=== PATIENT | male | born 1980 | race Caucasian/White ===

== ENCOUNTER 2023-12-03 16:03 | Inpatient (IN) | payer OTHER, SELFPAY ==
[2023-12-03 16:04] VITALS: BP 144/98; PULSE 81; RESP 15; TEMP 36.1; O2SAT 96; BMI 32.8
--- NOTE | 2023-12-03 16:12 | EDS_ITS ---
HPI History of Present Illness Chief Complaint: Abd Pain [facility] Medical History (Updated 12/03/23 @ 22:[address] Amari Soto MD) Gallstone Home Medications ?Medication ?Instructions ?Recorded ?Last Taken ?Type NK 12/03/23 Unknown History Allergy/AdvReac Type Severity Reaction Status Date / Time No Known Allergies Allergy Verified 12/03/23 16:03 Social History Smoking Status: Never smoker EXAM Physical Exam Const Vital Signs: 12/03/23 16:04 12/03/23 20:00 12/03/23 21:59 Temperature 97 F L 98.6 F Temperature Source Temporal Pulse Rate 81 62 65 Respiratory Rate 15 16 18 Blood Pressure 144/98 H 148/93 H 141/97 H Blood Pressure Mean 113 111 111 Pulse Ox 96 99 96 Oxygen Delivery Method Room Air Room Air MDM MDM MDM Narrative Medical decision making narrative: HISTORY OF PRESENT ILLNESS: 43-year-old male presents abdominal pain. Notes he was recently seen in outside hospital and told he had gallstones. Notes pain is worse today and also endorses associated nausea and vomiting. States he has had 2 weeks of abdominal pain is worse after food. Notes he was recently evaluated in outside hospital where he was found have gallstones. Noted this morning he ate breakfast he had severe pain after eating that is since resolved. Notes he tried fireball whiskey because he thought this would help however this made it much worse. He notes several episodes of nonbloody nonbilious vomitus. Denies history abdominal surgeries. Last bowel movement was today. There is no melena or hematochezia noted. He does not drink alcohol other than his 1 drink today. He does endorse chest tightness as well. Denies shortness of breath. Denies leg swelling. The patient denies recent surgery in the last 4 weeks or immobilization in the last 3 days, denies previous diagnosis of DVT or PE, hemoptysis, unilateral leg swelling or malignancy with treatment the last 6 months or palliative. No estrogen use noted. Patient denies sudden onset of pain, no tearing sensation, no migratory symptoms, no new numbness, weakness or loss of sensation. Patient denies family history or personal history of Connective tissue disorders (Marfan's Syndrome, Olesya Danlos etc) REVIEW OF SYSTEMS: Pertinent positives: Abdominal pain, nausea vomiting Pertinent negatives: Syncope, vomiting, focal weakness, leg swelling PHYSICAL EXAM: Nursing triage notes reviewed, Vital signs reviewed Constitutional: please see mdm HENT: MMM Eyes: Pupils equal round and reactive to light, Extraocular muscles intact Neck: No stridor, no JVD, full neck ROM Lungs: Clear to auscultation, No wheezing or rales. No increased work of breathing, no conversational dyspnea, no accessory muscle use, no nasal flaring. No respiratory distress noted Heart: Regular rate and rhythm, No murmurs, No rubs and No gallops, 2+ distal pulses (radial, femoral, posterior tibial) in all extremities Abdomen: Soft, there is no tenderness, rigidity, rebound or guarding, no obvious peritoneal signs, no palpable pulsatile abdominal masses, no auscultated abdominal bruit : No CVAT Extremities: No edema Neuro: No focal neurological deficits, cranial nerves II through XII intact, 5/5 strength in all extremities. Intact sensation to light touch in all extremities, 2+ reflexes bilateral patella tendons. Normal gait. No ataxia. Skin: No rash or lesions noted MEDICAL DECISION MAKING: Chief Complaint: Abdominal pain External records reviewed: Imaging reviewed In [facility]. No recent advanced imaging abdomen pelvis in [facility]. I reviewed [facility] as well. There were no recent imaging studies, labs or encounters noted in [facility] as well. Factors affecting care: Gallstones Social determinants of health: Positive alcohol use History obtained from others: none Consults: none [facility] Narrative: Patient was initially hemodynamically stable, afebrile and nontoxic-appearing. Abdominal exam was overall benign without any obvious appreciable tenderness. Given history of recent diagnosis of gallstones and pain after food I was more concerned about gallbladder pathology. So I pursued an ultrasound initially rather than opting for a CT scan. I considered the following differential diagnosis: AAA, small bowel obstruction, abdominal perforation, appendicitis, pancreatitis, hepatobiliary pathology (acute cholecystitis, biliary colic), mesenteric ischemia, pathology (ie nephrolithiasis, pyelonephritis). I treated the patient with IV fluids, IV Zofran and Pepcid ALL IMAGES (IF OBTAINED) HAVE BEEN PERSONALLY REVIEWED AND INTERPRETED BY MYSELF. Ultrasound shows evidence of gallstones, pericholecystic fluid but no sonographic Bermeo sign CT scan abdomen pelvis shows evidence of pericholecystic fluid and concern for acute cholecystitis CBC with leukocytosis suggestive of systemic inflammation, no anemia or thrombocytopenia BMP without evidence of significant electrolyte abnormalities, no anion gap, no acute kidney injury. LFTs with elevation direct bilirubin as well as AST and ALT consistent with likely hepatobiliary obstructive etiology Lipase is wnl indicating no pancreatic inflammation. Urinalysis shows no evidence of urinary inflammation suggestive of UTI Consulted surgeon on-call Dr. Soto who agreed to admit the patient to his service for definitive intervention. Recommended giving Zosyn. Patient was admitted to the floor in stable condition. The patient and/or family, caregivers express understanding. The patient and/or family, caregivers agrees with the plan. Shared decision making: I will have a discussion with the patient and or visitors regarding risk/benefits of further testing or admission. They will be made aware of of the risk/benefits inherent in this decision they will be given the opportunity to voice understanding. Total critical care time today provided was at least 0 minutes. This excludes separately billable procedures. Critical care time (if documented) is secondary to the patient having high probability of clinically significant/life threatening deterioration in the patient's condition which required my urgent intervention. Impression: 1. Acute abdominal pain 2. Nausea vomiting 3. Gallstones 2. Acute cholecystitis Dispo: Admit to general surgery service This note was generated with [employer] dictation software. It may contain incorrect words, spelling, and punctuation that were not noted in review of the chart prior to signing. Lab Data Labs: Laboratory Results - last 24 hr 12/03/23 12/03/23 16:40 16:44 WBC 12.5 H RBC 5.39 Hgb 15.6 Hct 46.8 MCV 86.8 MCH 28.9 MCHC 33.3 RDW Std Deviation 39.8 RDW Coeff of Sisi 12.6 Plt Count 198 MPV 9.3 Immature Gran % (Auto) 0.400 Neut % (Auto) 82.1 H Lymph % (Auto) 8.3 L [place] % (Auto) 6.9 Eos % (Auto) 1.8 Baso % (Auto) 0.5 Absolute Neuts (auto) 10.3 H Absolute Lymphs (auto) 1.03 Nucleated RBC % 0 Sodium 136 Potassium 3.8 Chloride 104 Carbon Dioxide 26.0 Anion Gap 6 BUN 16 Creatinine 1.03 Estim Creat Clear Calc 122.52 Est GFR (MDRD) Af Amer 100 Est GFR (MDRD) Non-Af 83 BUN/Creatinine Ratio 15.5 Glucose 104 Calcium 9.1 Total Bilirubin 0.80 Direct Bilirubin 0.33 H AST 58 H ALT 65 H Alkaline Phosphatase 83 Total Protein 7.6 Albumin 3.5 Globulin 4.1 Lipase 23 Urine Color Yellow Urine Clarity Clear Urine pH 6.0 Ur Specific [place] 1.020 Urine Protein 15 H Urine Glucose (UA) Normal Urine Ketones Negative Urine Occult Blood 10 H Urine Nitrite Negative Urine Bilirubin Negative Urine Urobilinogen Normal Ur Leukocyte Esterase Negative Urine RBC 5-10 SEEN Urine WBC 0-5 SEEN Ur Squamous Epith Cells 0 SEEN Urine Bacteria 1+ Urine Mucus 3+ Radiography Diagnostic Testing: Clinical Impression(s) from Imaging Studies Abdomen Ultrasound 12/03/23 16:27 IMPRESSION: Large nonspecific fatty infiltrated liver Gallstones with pericholecystic fluid but no sonographic evidence for acute cholecystitis... However if strong clinical suspicion for acute cholecystitis HIDA scan recommended for further evaluation Nonvisualized pancreas due to bowel gas producing artifact. CT would be helpful to exclude possibility of pancreatitis if clinically warranted Electronically Signed: Dawood Em MD at 18:54 EDT Reading Location ID and State: [facility] / [place] Tel [phone], Service support , Abdomen/Pelvis CT 12/03/23 19:13 IMPRESSION: Cholelithiasis and findings suggestive of mild acute cholecystitis with possible tiny nonobstructing stone in the distal common bile duct. HIDA scan would be useful for further evaluation if indicated Nonspecific fatty infiltrated liver. Other findings as above Electronically Signed: Dawood Em MD at 20:41 EDT , Discharge Plan Triage Chief Complaint: Abd Pain ED Provider: Nathan Denis Dx/Rx/DC Orders Primary Care Provider: Diana Hernadez,Out of
--- NOTE | 2023-12-03 16:27 | US_ITS ---
STUDY: ABDOMINAL ULTRASOUND - RIGHT UPPER QUADRANT REASON FOR VISIT: Male, 43 years old RUQ TTP after food TECHNIQUE: Ultrasound evaluation of the right upper quadrant was performed with real-time and static [place]ledo-scale imaging. TECHNICAL QUALITY: Adequate. COMPARISON: None. FINDINGS: Liver: The liver measures 20.1 cm. There is diffusely increased echogenicity of the liver. The bile ducts are within normal limits. There is hepatic color flow. The direction of portal flow is hepatopetal. There is no demonstrated mass lesion. Gallbladder: Normal distended gallbladder. The gallbladder wall measures 7.7 mm. There is a negative sonographic Bermeo''s sign. There is pericholecystic fluid. There is biliary sludge and multiple stones. Common Bile Duct (C.B.D.): The common bile duct measures 5.2 mm. Pancreas: Not visualized due to bowel gas producing artifact Right Kidney: Normal size of the right kidney. The right kidney measures 11.1 x 5.2 x 5 cm. Normal renal cortex. The right cortex measures 1.6 cm. There is no demonstrated renal mass or cyst. There is no right hydronephrosis. US/Abdomen Limited IMPRESSION: Large nonspecific fatty infiltrated liver Gallstones with pericholecystic fluid but no sonographic evidence for acute cholecystitis... However if strong clinical suspicion for acute cholecystitis HIDA scan recommended for further evaluation Nonvisualized pancreas due to bowel gas producing artifact. CT would be helpful to exclude possibility of pancreatitis if clinically warranted Electronically Signed: Dawood Em MD at 18:54 EDT ,
--- NOTE | 2023-12-03 16:45 | ED.RN ---
PATIENT STATES HE DOES NOT WANT IV MEDS AT THIS TIME
[2023-12-03 16:47] LABS: Squamous Epithelial Cells - UA 0 SEEN /hpf (0-5)
[2023-12-03 16:53] LABS: Absolute Lymphocyte Count 1.03 X10^3/uL (0.83-4.51); Absolute Neutrophil Count 10.3 X10^3/uL (2.0-7.7); Basophil# 0.06 X10^3/uL; Basophil% 0.5 % (0-1); Eosinophil# 0.22 X10^3/uL; Eosinophils% 1.8 % (0-5); Hematocrit 46.8 % (40-54); Hemoglobin 15.6 g/dL (13.0-16.5); Lymphocyte # 1.03 X10^3/ul (0.83-4.51); Lymphocyte % 8.3 % (19-41); Mean Corp Hgb Conc 33.3 g/dL (32-36); Mean Corpuscular Hgb 28.9 pg (27.0-32.0); Mean Corpuscular Volume 86.8 fL (80-94); Mean Platelet Vol. 9.3 fl (6.2-12.0); Monocyte# 0.86 X10^3/uL; Monocyte% 6.9 % (0-10); NRBC Flagged by Analyzer 0 % (0-5); Neutrophil # 10.26 X10^3/uL (2.7-7.7); Neutrophil % 82.1 % (47-70); Platelet Count 198 K/mm3 (150-450); RBC Distribution Width CV 12.6 % (11.6-14.6); RBC Distribution Width SD 39.8 fl (35.1-43.9); Red Blood Count 5.39 M/mm3 (4.6-6.2); White Blood Count 12.5 K/mm3 (4.4-11.0)
[2023-12-03 16:58] LABS: Color, Urine Yellow (Yellow); Glucose, Dipstick Normal (Normal); Ketone-Dipstick Negative (Negative); Leukocyte Esterase-Dipstick Negative /ul (Negative); Nitrite-Dipstick Negative (Negative); Occult Blood-Urine 10 /ul (Negative); Protein-Dipstick 15 mg/dl (Negative); Urine Bilirubin Dipstick Negative (Negative); Urine Clarity Clear (Clear); Urine Urobilinogen Normal (Normal)
[2023-12-03 17:11] LABS: AST(SGOT) 58 U/L (15-37); Alanine Aminotransfer ALT/SGPT 65 U/L (16-61); Albumin, Serum 3.5 g/dL (3.2-5.0); Alkaline Phosphatase 83 U/L (45-117); Anion Gap 6 (5-15); BUN 16 mg/dL (7-18); BUN/Creat Ratio 15.5 RATIO (10-20); Bilirubin, Direct 0.33 mg/dL (0.00-0.30); Calcium,Total 9.1 mg/dL (8.5-10.1); Chloride 104 mmol/L (98-107); Creatinine, Serum 1.03 mg/dL (0.70-1.30); EST Glomerular Filtration Rate 83 mL/min (>60); Est Glom Filt Rate - Afr Amer 100 mL/min (>60); Estimated Creatinine Clearance 122.52 ml/min; Globulin 4.1 g/dL (2.2-4.2); Glucose 104 mg/dL (74-106); Lipase 23 U/L (13-75); Potassium 3.8 mmol/L (3.5-5.1); Protein, Total 7.6 g/dL (6.4-8.2); Sodium Level 136 mmol/L (136-145)
[2023-12-03 17:12] LABS: Bacteria 1+ /hpf (None Seen); Mucous, Urine 3+ /hpf (<or=2+); Red Blood Cells-Urine 5-10 SEEN /hpf (0-5); White Blood Cells 0-5 SEEN /hpf (0-5)
--- NOTE | 2023-12-03 19:13 | CT_ITS ---
STUDY: CT ABDOMEN AND PELVIS WITH CONTRAST REASON FOR EXAM: Male, 43 years old. epigastric abdominal pain RADIATION DOSAGE (If Supplied By Facility): CTDIvol = ( 18.42 ) mGy, DLP = ( 1300.39 ) mGycm TECHNIQUE: Transaxial images were obtained from the dome of the diaphragm to the symphysis pubis without oral contrast. IV 100mL Isovue-370 was administered. Sagittal and coronal images were reconstructed. Individualized dose optimization techniques were used for this CT. COMPARISON: None. FINDINGS: The visualized lung bases are unremarkable. The visualized portions of the heart are within normal limits. Nonspecific fatty infiltrated liver without mass or bile duct dilatation however there does appear to be a tiny stone in the distal common bile duct. Thick-walled gallbladder containing multiple calcified stones with subtle stranding in the fat. Normal spleen. Normal pancreas. Normal bilateral adrenal glands. Mild bilateral pelvocaliectasis versus parapelvic cysts. No evidence for gross infiltration or cortical renal mass. . Normal visualized stomach. Normal small intestine. Minor diverticular changes of sigmoid colon without evidence for acute diverticulitis The appendix is visualized and appears normal. Tiny pericecal nodes without stranding in the fat Normal abdominal aorta. Normal inferior vena cava. Normal retroperitoneum. Normal urinary bladder. Nonspecific enlargement of the prostate. Trace of fluid in the pouch of Julián of uncertain etiology or clinical significance Normal abdominal wall. Lumbar spine demonstrates mild spondylosis. CT/Abdomen/Pelvis W IV Cont ONLY IMPRESSION: Cholelithiasis and findings suggestive of mild acute cholecystitis with possible tiny nonobstructing stone in the distal common bile duct. HIDA scan would be useful for further evaluation if indicated Nonspecific fatty infiltrated liver. Other findings as above Electronically Signed: Dawood Em MD at 20:41 EDT ,
[2023-12-03 20:00] VITALS: BP 148/93; PULSE 62; RESP 16; O2SAT 99
[2023-12-03 21:59] VITALS: BP 141/97; PULSE 65; RESP 18; TEMP 37; O2SAT 96
[2023-12-03] MEDS: Piperacil/Tazobactam 3.375 GM in 0.9% Normal Saline (50mL MB+) 50 ML IV (22:05)
--- NOTE | 2023-12-03 22:08 | HP.PCM_ITS ---
HPI - General General Date of Admission: 12/03/23 Date of Service: 12/03/23 HPI Narrative ANIA LEOS, is a 43 M who presents to [facility] with complaints of acute onset abdominal pain that has been variably associated with nausea and vomiting spells. Patient states that the symptoms began approximately 2.5 weeks ago after a hearty wedding meal. He had several additional episodes and tried jjdn-wud-vutnsay agents such as Pepto-Bismol with little immediate relief. However, each episode seem to gradually improve. He shares that he had an episode 3 days ago that took him to outside hospital where he underwent CT imaging that showed evidence of gallstones. He was recommended acil-fyp-fwtimdb analgesics for his discomfort but denies any ultrasound being performed or referral to surgery been made. Upon hearing about his gallstones Mr. Leos states he contemplated trying to dissolve the stones and also tried to assume a very bland diet. He shares today he ate some grilled chicken without seasoning and some healthy cookies but shortly after ingesting this meal he started with severe right upper quadrant abdominal pain and nausea. Patient's ER workup is notable for mild leukocytosis of 12.5. CMP shows mild elevation of AST and ALT but no elevation of the alkaline phosphatase. Ultrasound was performed first and showed thickening of the gallbladder wall at 7.7 mm with some associated pericholecystic fluid and cholelithiasis was confirmed. However, the medical records custodian did not record a sonographic Bermeo's sign. Thus emergency medicine felt this result was equivocal and pursued CT imaging of the abdomen pelvis which again showed thickening of the gallbladder with pericholecystic fluid and was read by radiology as concerning for possible mild acute cholecystitis. To both studies radiology recommended a HIDA may be beneficial. 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 His only past surgical history consists of a shoulder operation a year ago. He notes no difficulties with the general anesthesia that was required for this operation. [facility] Medical History (Updated 12/03/23 @ 22:[address] Amari Soto MD) Gallstone Home Medications ?Medication ?Instructions ?Recorded ?Last Taken ?Type NK 12/03/23 Unknown History Allergy/AdvReac Type Severity Reaction Status Date / Time No Known Allergies Allergy Verified 12/03/23 16:03 Social History Smoking Status: Never smoker ROS Gastrointestinal Gastrointestinal: Reports abdominal pain, nausea and vomiting Integumentary Integumentary: Denies jaundice or pruritus Vital Signs Vital Signs Vital Signs: 12/03/23 16:04 12/03/23 20:00 12/03/23 21:59 Temperature 97 F L 98.6 F Temperature Source Temporal Pulse Rate 81 62 65 Respiratory Rate 15 16 18 Blood Pressure 144/98 H 148/93 H 141/97 H Blood Pressure Mean 113 111 111 Pulse Ox 96 99 96 Oxygen Delivery Method Room Air Room Air Weight Weight: 255 lb 4.725 oz Body Mass Index (BMI) 32.8 Physical Exam Const alert, oriented x3 and well nourished Resp normal respiratory effort GI GI Narrative: Obese, hirsute, no scars, soft, tender to palpation in the right upper quadrant with positive Bermeo sign Results Lab / Micro Data 12/03/23 16:44 12/03/23 16:44 Labs: Laboratory Results - last 24 hr 12/03/23 16:40: Urine Color Yellow, Urine Clarity Clear, Urine pH 6.0, Ur Specific [place] 1.020, Urine Protein 15 H, Urine Glucose (UA) Normal, Urine Ketones Negative, Urine Occult Blood 10 H, Urine Nitrite Negative, Urine Bilirubin Negative, Urine Urobilinogen Normal, Ur Leukocyte Esterase Negative, Urine RBC 5-10 SEEN, Urine WBC 0-5 SEEN, Ur Squamous Epith Cells 0 SEEN, Urine Bacteria 1+, Urine Mucus 3+ 12/03/23 16:44: WBC 12.5 H, RBC 5.39, Hgb 15.6, Hct 46.8, MCV 86.8, MCH 28.9, MCHC 33.3, RDW Std Deviation 39.8, RDW Coeff of Sisi 12.6, Plt Count 198, MPV 9.3, Immature Gran % (Auto) 0.400, Neut % (Auto) 82.1 H, Lymph % (Auto) 8.3 L, [place] % (Auto) 6.9, Eos % (Auto) 1.8, Baso % (Auto) 0.5, Absolute Neuts (auto) 10.3 H, Absolute Lymphs (auto) 1.03, Nucleated RBC % 0, Sodium 136, Potassium 3.8, Chloride 104, Carbon Dioxide 26.0, Anion Gap 6, BUN 16, Creatinine 1.03, Estim Creat Clear Calc 122.52, Est GFR (MDRD) Af Amer 100, Est GFR (MDRD) Non-Af 83, BUN/Creatinine Ratio 15.5, Glucose 104, Calcium 9.1, Total Bilirubin 0.80, D irect Bilirubin 0.33 H, AST 58 H, ALT 65 H, Alkaline Phosphatase 83, Total Protein 7.6, Albumin 3.5, Globulin 4.1, Lipase 23 Imaging Radiology Impression Abdomen Ultrasound 12/03/23 16:27 IMPRESSION: Large nonspecific fatty infiltrated liver Gallstones with pericholecystic fluid but no sonographic evidence for acute cholecystitis... However if strong clinical suspicion for acute cholecystitis HIDA scan recommended for further evaluation Nonvisualized pancreas due to bowel gas producing artifact. CT would be helpful to exclude possibility of pancreatitis if clinically warranted Electronically Signed: Dawood Em MD at 18:54 EDT , Abdomen/Pelvis CT 12/03/23 19:13 IMPRESSION: Cholelithiasis and findings suggestive of mild acute cholecystitis with possible tiny nonobstructing stone in the distal common bile duct. HIDA scan would be useful for further evaluation if indicated Nonspecific fatty infiltrated liver. Other findings as above Electronically Signed: Dawood Em MD at 20:41 EDT , Assessment & Plan Assessment/Plan (1) Acute calculous cholecystitis: PLAN: Patient is a 43-year-old male who presents with several week history of postprandial abdominal discomfort that came to a crescendo today after another meal of animal protein. He is previously diagnosed with gallstones via CT imaging at outside facility but today's workup was more consistent with acute cholecystitis given the leukocytosis, gallbladder wall thickening, pericholecystic fluid, and convincing exam with Bermoe sign. Based on his constellation admission with laparoscopic cholecystectomy was recommended. Patient and his were receptive. The patient was described in detail and I included description of the planned cholangiogram as well as the implications for a positive study (possible lengthening of stay and need for additional procedure). Continuous IV antibiotics will begin by emergency medicine and continued on the floor. Patient will be allowed clear liquid diet till midnight and then made n.p.o. past midnight. He should be consented for laparoscopic cholecystectomy intraoperative cholangiogram. Amari Soto MD General Surgery Endocrine Surgery Pager: [facility] [address] [place] [address], [address] [place] [id number] Office: [phone] Charges/Coding Visit Charges Inpatient E&M: 30511 Init Hosp L2
[2023-12-03 22:38] VITALS: BP 135/92; PULSE 70; RESP 16; TEMP 36.8; O2SAT 95
[2023-12-03 22:42] VITALS: BMI 32.8
[2023-12-03] MEDS: 0.9% Normal Saline (1000mL) 1,000 ML 125 ML IV (23:06)
[2023-12-03] MEDS: 0.9% Normal Saline (250mL Bag) 250 ML 15 ML IV (23:06)
[2023-12-04] VITALS (17 sets, daily range): BP systolic 120–156; BP diastolic 82–97; PULSE 68–95; RESP 14–18; TEMP 36.3–37.1; O2SAT 93–96; BMI 32.8
--- NOTE | 2023-12-04 | GALL_PTH ---
PATIENT: ANIA SPARROW LOC: MS3 U#:[id number] AGE/SX: 43/M ROOM: MI315 RE12/03/[address]: Dr. Amari Soto MD : 1980 BED: 1 DIS: 12/05/2023 SPEC #: [id number] RECD: 12/04/23 18:32 STATUS: CRISTOPHER RAMACHANDRAN #: [id number] VANDANA: 12/04/23 00:[address]: Amari Soto DEPT: SURGICAL PATHOLOGY RECD BY: [place] ENTERED: 12/05/23 08:30 SP TYPE: DEVORAH LOVING DR: Out of [facility] Doctor Tissues: Gallbladder, NOS Procedures: Surgery Specimen Level III HEADER OPERATION: Laparoscopic, cholecystectomy with IOC PRE-OP DIAGNOSIS: Acute calculous cholecystitis TISSUE SUBMITTED: Gallbladder MICROSCOPIC DIAGNOSIS Gallbladder, cholecystectomy: Acute and chronic ulcerated and hemorrhagic cholecystitis and cholelithiasis. Moderate to marked reactive epithelial changes. 12/06/2023 COMMENT Case has been reviewed in consultation with Dr. Gaston who concurs with the above diagnosis. IDC:AM MICROSCOPIC DESCRIPTION Slides are reviewed. GROSS DESCRIPTION Received is one container labeled with the patient's name and designated gallbladder. The specimen consists of a gallbladder measuring 9.0 cm in length and up to 5.0 cm in diameter. The external surface is pink-caballero, smooth and glistening for the most part. Focally it is granular, hemorrhagic and contains cautery artifact. The gallbladder contains hemorrhagic bile, blood clots and multiple greenish-brown stone measuring in aggregate 2.0 x 2.0 x 0.7 cm and 0.3 to 0.9 cm in greatest dimension. The mucosa is bile-stained and without any mass lesions. The gallbladder wall measures up to 0.5 cm in thickness. Computer Aided Design Operator sections from the gallbladder and the cystic duct are submitted in one cassette. / SJ: 12/05/2023 TC:2 CPT: 28608
--- NOTE | 2023-12-04 05:00 | EKG12_ITS ---
Test Reason : PRE-OP Blood Pressure : / mmHG Vent. Rate : 067 BPM Atrial Rate : 067 BPM P-R Int : 164 ms QRS Dur : 098 ms QT Int : 380 ms P-R-T Axes : 044 056 015 degrees QTc Int : 401 ms Normal sinus rhythm Normal ECG No previous ECGs available Confirmed by LINETTE WHALEY, VINCENT ([id number]), field map editor MARYELLEN RUSSELL ([id number]) on 12/04/2023 10:24:52 AM Referred By: BRADEN Confirmed By:VINCENT SUE MD
[2023-12-04] MEDS: Piperacil/Tazobactam 3.375 GM in 0.9% Normal Saline (50mL MB+) 50 ML IV ×2 (05:48→15:07)
[2023-12-04 06:04] LABS: Absolute Lymphocyte Count 1.21 X10^3/uL (0.83-4.51); Absolute Neutrophil Count 4.7 X10^3/uL (2.0-7.7); Basophil# 0.06 X10^3/uL; Basophil% 0.9 % (0-1); Eosinophil# 0.44 X10^3/uL; Eosinophils% 6.3 % (0-5); Hematocrit 43.9 % (40-54); Hemoglobin 14.6 g/dL (13.0-16.5); Lymphocyte # 1.21 X10^3/ul (0.83-4.51); Lymphocyte % 17.3 % (19-41); Mean Corp Hgb Conc 33.3 g/dL (32-36); Mean Corpuscular Hgb 29.1 pg (27.0-32.0); Mean Corpuscular Volume 87.6 fL (80-94); Mean Platelet Vol. 9.2 fl (6.2-12.0); Monocyte# 0.54 X10^3/uL; Monocyte% 7.7 % (0-10); NRBC Flagged by Analyzer 0 % (0-5); Neutrophil % 67.4 % (47-70); Platelet Count 186 K/mm3 (150-450); RBC Distribution Width CV 12.7 % (11.6-14.6); Red Blood Count 5.01 M/mm3 (4.6-6.2)
[2023-12-04 06:36] LABS: ALB/GLOB Ratio 0.9 RATIO (0.9-2.4); AST(SGOT) 37 U/L (15-37); Alanine Aminotransfer ALT/SGPT 73 U/L (16-61); Albumin, Serum 3.2 g/dL (3.2-5.0); Alkaline Phosphatase 79 U/L (45-117); Anion Gap 6 (5-15); BUN 15 mg/dL (7-18); BUN/Creat Ratio 16.2 RATIO (10-20); Calcium,Total 8.9 mg/dL (8.5-10.1); Chloride 104 mmol/L (98-107); Creatinine, Serum 0.93 mg/dL (0.70-1.30); EST Glomerular Filtration Rate 94 mL/min (>60); Est Glom Filt Rate - Afr Amer 113 mL/min (>60); Estimated Creatinine Clearance 135.75 ml/min; Globulin 3.7 g/dL (2.2-4.2); Glucose 97 mg/dL (74-106); Potassium 3.7 mmol/L (3.5-5.1); Protein, Total 6.9 g/dL (6.4-8.2); Sodium Level 138 mmol/L (136-145)
[2023-12-04] MEDS: 0.9% Normal Saline (1000mL) 1,000 ML 125 ML IV (07:05)
--- NOTE | 2023-12-04 07:53 | PN.SURG_ITS ---
Subjective Subjective Patient seen and examined during AM rounds. Is found resting in bed. He denies any recurrence of his abdominal pain. Objective Data Objective Data Vital Signs: Vital Signs Temp Pulse Resp BP Pulse Ox O2 Del Method 98.0 F 68 16 120/86 H 94 Room Air 12/04/23 04:05 12/04/23 04:05 12/04/23 04:05 12/04/23 04:05 12/04/23 04:05 12/04/23 04:05 Oxygen Delivery Method Room Air Weight: 255 lb 8.252 oz Body Mass Index (BMI) 32.8 Intake & Output: Intake and Output for Last 24 Hours 12/02/23 12/03/23 12/04/23 23:59 23:59 23:59 Intake Total 50 / 150 1097.92 / 1097.92 Output Total 300 / 300 Balance 50 / 150 797.92 / 797.92 Lab / Micro Data 12/04/23 05:22 12/04/23 05:22 Labs: Laboratory Results - last 24 hr 12/03/23 16:40: Urine Color Yellow, Urine Clarity Clear, Urine pH 6.0, Ur Specific Mcintire 1.020, Urine Protein 15 H, Urine Glucose (UA) Normal, Urine Ketones Negative, Urine Occult Blood 10 H, Urine Nitrite Negative, Urine Bilirubin Negative, Urine Urobilinogen Normal, Ur Leukocyte Esterase Negative, Urine RBC 5-10 SEEN, Urine WBC 0-5 SEEN, Ur Squamous Epith Cells 0 SEEN, Urine Bacteria 1+, Urine Mucus 3+ 12/03/23 16:44: WBC 12.5 H, RBC 5.39, Hgb 15.6, Hct 46.8, MCV 86.8, MCH 28.9, MCHC 33.3, RDW Std Deviation 39.8, RDW Coeff of Sisi 12.6, Plt Count 198, MPV 9.3, Immature Gran % (Auto) 0.400, Neut % (Auto) 82.1 H, Lymph % (Auto) 8.3 L, [place] % (Auto) 6.9, Eos % (Auto) 1.8, Baso % (Auto) 0.5, Absolute Neuts (auto) 10.3 H, Absolute Lymphs (auto) 1.03, Nucleated RBC % 0, Sodium 136, Potassium 3.8, Chloride 104, Carbon Dioxide 26.0, Anion Gap 6, BUN 16, Creatinine 1.03, Estim Creat Clear Calc 122.52, Est GFR (MDRD) Af Amer 100, Est GFR (MDRD) Non-Af 83, BUN/Creatinine Ratio 15.5, Glucose 104, Calcium 9.1, Total Bilirubin 0.80, D irect Bilirubin 0.33 H, AST 58 H, ALT 65 H, Alkaline Phosphatase 83, Total Protein 7.6, Albumin 3.5, Globulin 4.1, Lipase 23 12/04/23 05:22: WBC 7.0, RBC 5.01, Hgb 14.6, Hct 43.9, MCV 87.6, MCH 29.1, MCHC 33.3, RDW Std Deviation 41.0, RDW Coeff of Sisi 12.7, Plt Count 186, MPV 9.2, Immature Gran % (Auto) 0.400, Neut % (Auto) 67.4, Lymph % (Auto) 17.3 L, [place] % (Auto) 7.7, Eos % (Auto) 6.3 H, Baso % (Auto) 0.9, Absolute Neuts (auto) 4.7, Absolute Lymphs (auto) 1.21, Nucleated RBC % 0, Sodium 138, Potassium 3.7, Chloride 104, Carbon Dioxide 28.0, Anion Gap 6, BUN 15, Creatinine 0.93, Estim Creat Clear Calc 135.75, Est GFR (MDRD) Af Amer 113, Est GFR (MDRD) Non-Af 94, BUN/Creatinine Ratio 16.2, Glucose 97, Calcium 8.9, Total Bilirubin 0.70, AST 37, ALT 73 H, Alkaline Phosphatase 79, Total Protein 6.9, Albumin 3.2, Globulin 3.7, Albumin/Globulin Ratio 0.9 Radiography Diagnostic Testing: Radiology Impression Abdomen Ultrasound 12/03/23 16:27 IMPRESSION: Large nonspecific fatty infiltrated liver Gallstones with pericholecystic fluid but no sonographic evidence for acute cholecystitis... However if strong clinical suspicion for acute cholecystitis HIDA scan recommended for further evaluation Nonvisualized pancreas due to bowel gas producing artifact. CT would be helpful to exclude possibility of pancreatitis if clinically warranted Electronically Signed: Dawood Em MD at 18:54 EDT Reading Location ID and State: [facility] [place] / [place] Tel , Service support , Abdomen/Pelvis CT 12/03/23 19:13 IMPRESSION: Cholelithiasis and findings suggestive of mild acute cholecystitis with possible tiny nonobstructing stone in the distal common bile duct. HIDA scan would be useful for further evaluation if indicated Nonspecific fatty infiltrated liver. Other findings as above Electronically Signed: Dawood Em MD at 20:41 EDT , Physical Exam Const oriented x3 and no apparent distress Resp normal respiratory effort GI GI Narrative: Nondistended, soft, tender to palpation of the right upper quadrant with mildly positive Bermeo sign Assessment & Plan Assessment/Plan (1) Acute calculous cholecystitis: PLAN: Patient is a 43-year-old male who presents with acute cholecystitis. Pain is markedly improved this morning, however, patient ventilation equipment tender right upper quadrant with palpation on exam. Planning to proceed to the operating room later today for laparoscopic cholecystectomy with intraoperative cholangiogram. Patient denies any questions related to these plans. Postoperatively patient will return to the MedSur floor where we will advance his diet and monitor for diet tolerance. We will assess for appropriateness for discharge versus planning for discharge tomorrow. Amari Soto MD General Surgery Endocrine Surgery Pager: [facility] [address] [place] [address], [address] [place] [address] Office: [phone] Charges/Coding Visit Charges Inpatient E&M: 94723 Subs Hosp L2
[2023-12-04] MEDS: Pantoprazole Sodium 40 MG in 0.9% Normal Saline (100mL MB+) 100 ML 330 MG IV (10:17)
[2023-12-04] MEDS: 0.9% Saline Lock 10 ML Syringe IV (10:20)
--- NOTE | 2023-12-04 11:18 | CASEMGMT ---
MELLY HART Assessment: Face to Face with pt for initial transition planning/care coordination assessment. MELLY HART introduced self and role at [facility], pt voices understanding and consents to assessment. Pt is A&O x4 and answers all questions appropriately at this time. Pt lying in bed in no distress with at bedside. Pt agreeable to assessment with present. Care providers, pharmacy, and demographics verified/updated. Admitting Dx: acute cholecystitis Strata Score: 1 PCP:[facility] Care Specialists:stephanie Couch Pharmacy: [facility] Retail Insurance: [employer] Prescription Benefit: no LNOK: Selin Leos, Living Arrangements: Pt lives with and two sons in a two story home with 3 steps to enter. Pt reports he is I in ADLs and denies concerns at home. 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 DME:Denies HHC/SNF: Denies Pt states no concerns with going home at time of dc. Pt states no further concerns/needs. Surgery here to pick pt up to take down to OR. CM to follow. Advised pt to ask CM if any further question/concerns/needs arise, voices understanding. Pt Goal: Home Plan: Home Valeriy PICKARD CM
--- NOTE | 2023-12-04 11:40 | PRE.ANES_ITS ---
ASA Classification* ASA Classification ASA Classification: 2 Assessment & Plan Anesthesia* Anesthesia Assessment Anesthesia Assessment: Discussed sedation and/or anesthesia options, risks, benefits, and alternatives with patient/parents/legal guardian/POA. Questions invited. The patient/parents/legal guardian/POA seems to understand and agrees to proceed with anesthesia plan. Reviewed the physical assessment, medical history, allergy history and patient home medications list prior to surgery/procedure/anesthetic and documented any changes. Performed airway and anesthesia risk assessments. Anesthesia Type Anesthesia Type: General History Source History Obtained from:: Patient and Chart Anesthesia Focused Assessment* Temperature: 98.1 F Pulse Rate: 70 Blood Pressure: 139/88 Respiratory Rate: 18 Pulse Ox: 96 Oxygen Delivery Method: Room Air Airway Assessment Mouth opens: >3 cm Mallampati Score: IV Teeth Condition: Missing (Several missing molars.) Neck Range of motion (ROM): Limited ROM (Slight decrease in extension.) Pertinent Findings EKG Pertinent Findings:: December 04, 2023. Normal sinus rhythm. Focused Labs Anesthesia Preop lab: CBC WBC 7.0 K/mm3 (4.4-11.0) 12/04/23 05:22 RBC 5.01 M/mm3 (4.6-6.2) 12/04/23 05:22 Hgb 14.6 g/dL (13.0-16.5) 12/04/23 05:22 Hct 43.9 % (40-54) 12/04/23 05:22 Plt Count 186 K/mm3 (150-450) 12/04/23 05:22 CHEMISTRY Potassium 3.7 mmol/L (3.5-5.1) 12/04/23 05:22 Sodium 138 mmol/L (136-145) 12/04/23 05:22 BUN 15 mg/dL (7-18) 12/04/23 05:22 Creatinine 0.93 mg/dL (0.70-1.30) 12/04/23 05:22 Glucose 97 mg/dL (74-106) 12/04/23 05:22 COAG Pre-Assessment Diagnosis/Proposed Procedure Planned Operative Procedure(s): Laparoscopic cholecystectomy with intraoperative cholangiograms Anesthesia History 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 When Was Last Pacemaker Check QUESTION #4 FULL TEXT: You/Your Family Experience fever (hyperthermia) with Anesthesia Last Oral Intake Last Oral intake: Last Oral Intake NPO since 12:00 12/04/23 11:27 Meds taken in AM with sips of No 12/04/23 11:27 water? Meds patient instructed to take am of surgery PONV PONV - business analytics analyst: PONV - business analytics analyst Female HX of Motion Sickness HX of N/V After Surgery Non-Smoker Duration of Surgery greater than 60 minutes Number of Risk Factors PONV Score Height & Weight Height & Weight: Anesthesia: Height & Weight Height 6 ft 2 in 12/04/23 11:27 Weight: 115.9 kg 12/04/23 11:27 Body Mass Index (BMI) 32.8 12/04/23 11:27 Respiratory Assessment Respiratory Assessment - business analytics analyst: Respiratory Tract Infection Hx - business analytics analyst Hx Respiratory Tract Infection No 12/03/23 22:55 STOP Sleep Apnea STOP Sleep Apnea - business analytics analyst: STOP Sleep Apnea - business analytics analyst Hx Hypertension No 12/03/23 22:43 Hx Sleep Apnea No 12/03/23 22:43 CPAP BIPAP Do you snore loudly (louder Yes 12/03/23 22:43 than talking or can be heard Do you often feel tired/ No 12/03/23 22:43 fatigued/ sleepy during daytime? Has anyone observed you stop No 12/03/23 22:43 breathing during sleep? STOP Results Negative 12/03/23 22:43 QUESTION #5 FULL TEXT : Do you snore loudly (louder than talking or can be heard through closed doors)? 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 Specify any problems Hx of Preganancy in last 3 N/A 12/03/23 22:43 Months Nurse Filling Out Transfusion JGLASS 12/03/23 22:43 & Questions: Date: 12/03/23 12/03/23 22:43 Time: 22:45 12/03/23 22:43 Patient unable to answer at this time (ie. confused, unrespo /Reproduction History /Reproductive History - business analytics analyst: /Reproductive Hx- business analytics analyst Hx Now No 12/03/23 22:55 Gestational Age (in weeks): EDC: Hx Hx Para Hx Section SAB No 12/03/23 22:55 Active Medications Active Medications: Current Medications Generic Name Dose Route Start Last Admin Trade Name Freq PRN Reason Stop Dose Admin Hydromorphone HCl 0.5 mg 12/03/23 22:05 Hydromorphone 0.5 Mg/0.5 Ml Syringe IV Q4H PRN PRN Pain Score 6-10 Piperacillin Sod/Tazobactam 50 mls @ 12.5 mls/hr 12/04/23 06:00 12/04/23 09:50 Sod 3.375 gm/ Sodium Chloride IV Infused Q8 CORNELIUS Infusion Pantoprazole Sodium 40 mg/ 110 mls @ 330 mls/hr 12/04/23 10:00 12/04/23 10:40 Sodium Chloride IV Infused Q24 CORNELIUS Infusion Sodium Chloride 250 mls @ 15 mls/hr 12/03/23 22:34 12/03/23 23:06 IV 15 mls/hr .[id number] PRN Administration Additional IVPB Infusion Sodium Chloride 250 mls @ 15 mls/hr 12/03/23 22:34 IV .[id number] PRN Saline Flush Sodium Chloride 1,000 mls @ 15 mls/hr 12/04/23 11:25 IV .Q48H CORNELIUS Ondansetron HCl 4 mg 12/03/23 22:05 Ondansetron 4 Mg/2 Ml Vial IV Q6H PRN PRN NAUSEA/VOMITING Sodium Chloride 10 - 40 ml 12/03/23 22:34 12/04/23 10:20 0.9% Saline Lock 10 Ml Syringe IV 10 ml UD PRN Administration SALINE FLUSH PFSH Medical History Rotator cuff arthropathy of right shoulder Gallstone Home Medications ?Medication ?Instructions ?Recorded ?Last Taken ?Type NK 12/03/23 Unknown History Allergy/AdvReac Type Severity Reaction Status Date / Time No Known Allergies Allergy Verified 12/03/23 22:49 Surgical History (Updated 12/04/23 @ 12:[address] Weston Maya MD) S/P right rotator cuff repair Social History Smoking Status: Never smoker Review of Systems (Anesthesia) ROS Narrative System reviewed and no additional complaints, except as documented.
[2023-12-04] MEDS: 0.9% Normal Saline (1000mL) 1,000 ML 15 ML IV (11:49)
--- NOTE | 2023-12-04 13:05 | RAD_ITS ---
CLINICAL HISTORY: Male, 43 years old. Abdominal pain PROCEDURE: CHOLANGIOGRAM - intraoperative FLUOROSCOPY TIME (if supplied): (46 seconds) Placement of the catheter and the procedure were performed by: Operating surgeon Fluoroscopy was provided by geospatial technologist, who was present in the room time of the procedure. TECHNIQUE: (Fluoroscopic guided laparoscopic transhepatic cholangiogram was performed utilizing 46 seconds of fluoroscopic time. Cumulative radiation dose was 31.85 mgy) Findings: Two cine runs were performed during the study documenting findings during the exam. For more complete information recommend correlation with surgical procedural notes RAD/Cholangiogram/ O R,Initial IMPRESSION: Fluoroscopic-guided laparoscopic intraoperative point Electronically Signed: Dawood Em MD at 17:00 EDT ,
[2023-12-04] MEDS: Bupivacaine Mpf 0.5% 30 ML VIAL (14:28)
--- NOTE | 2023-12-04 14:30 | PCM.OPRPT ---
Report of Operation Date of Procedure: 12/04/23 Pre-Operative Diagnosis: Acute cholecystitis Post-Operative Diagnosis: Same Surgery/Procedure Performed:: Laparoscopic cholecystectomy with intraoperative cholangiography Description of Surgical Findings:: ? Evidence of acute on chronic cholecystitis with thickened gallbladder rind ? Foreshortened cystic duct with near immediate filling of the common hepatic duct followed by the common bile duct through to the duodenum via the ampulla Vater. No visible filling defects. Surgeon: Amari Soto professor of communication arts: Alexander Montejo Type of Anesthesia: General/Supplemental Anesthesiologist: Weston Maya Specimen's removed: Gallbladder Drains: None Estimated Blood Loss (mL): 30 Description of Procedure: After proper identification in the preoperative holding area the patient was brought to the operating room where he was positioned supine on the operating room table. Preoperatively SCDs were connected and antibiotics (2 g Ancef was given for skin prophylaxis as an interval dose to patient's continue will order) were administered. General anesthesia was then induced. Patient's abdomen was prepped and draped in usual sterile fashion. A formal timeout was conducted to confirm both patient and the procedure. Procedure was begun with a supraumbilical incision which was extended deeply down to the level of the fascia. The fascia was elevated and incised, as well as the peritoneum. A finger sweep was performed to ensure there were no underlying adhesions and a 12 mm balloon trocar was inserted. Pneumoperitoneum was established at 15 mmHg. Three additional trocars (all 5 mm) were placed in the epigastrium and in the right upper quadrant. Inspection of the peritoneum revealed no inadvertent injury to the viscera below. The gallbladder was visualized with moderately severe inflammation. The gallbladder fundus was then grasped and elevated cephalad?to facilitate increased mobility the peritoneal covering of the gallbladder was opened with electrocautery. Simply opening this peritoneal lining resulted in diffuse bleeding from the liver and presumably a branch of the cystic artery. Then, using careful dissection the peritoneum was opened and the structures of the hepatocystic triangle were delineated. The node of Calot was mobilized off the underlying cystic artery with the triangle of calot more opened I was able to see bleeding from a branch of the cystic artery. A [place] grasper was electrified and this bleeding was controlled in bipolar fashion. Once the critical view of safety was obtained, the cystic duct was singly clipped and partially divided with a ductotomy. This duct proved friable and the ductotomy partially tore more distally. The proximal duct was milked of any debris until there was backflow of bile. Using an Bermudez Weld clamp, a cholangiocatheter was fed into the proximal segment of the cystic duct and clamped into place. Under fluoroscopy a cholangiogram was then obtained showing a very shortened cystic duct flowing into a mildly dilated common hepatic duct. Initially there was retrograde flow through the common hepatic duct to the proper hepatic ducts and then antegrade propagation through the common bile duct with unobstructed flow of contrast into the duodenum. I attempted to demonstrate the cystic/common bile duct confluence while adjusting the C arm but it appeared that this spatial difference was minimal and that part of the complicating factor was a deeper advancement of the cholangiocatheter. With the friability of the duct and the demonstrated patency of the common duct system I elected to forego any further images. The cholangiocatheter was withdrawn and the subxiphoid 5 mm port was withdrawn. The incision here was then extended and a 12 mm port was inserted. I then used the 10 mm Hem-o-paulo clips to occlude the proximal cystic duct adjacent to the common hepatic duct (but not impinging upon) and then the cystic duct was completely transected. The same process was used for the cystic artery. The gallbladder was then removed from the gallbladder fossa with the use of electrocautery. The liver was quite friable during this fraction of the gallbladder and resulted in some mild oozing from the gallbladder fossa which was dressed with selective electrocautery on the gallbladder fossa. The gallbladder was placed in an Endo Catch bag and removed from the peritoneum. Morison's pouch was irrigated and the effluent was suctioned free of the peritoneum. A fibrillar patch was placed adjacent to the clips deeply in the gallbladder fossa and remained white after placement. With hemostasis again confirmed the fascia of the 12 mm port sites was closed with #1 PDS in a [id number] fashion under laparoscopic direction then pneumoperitoneum was evacuated. A total of 30 mL of local anesthetic (half percent bupivacaine plain) was injected at the port sites for postoperative pain control. The skin of each port site was then closed in subcuticular fashion using 4-0 Monocryl. Steri-Strips and bandages were applied as dressings. Patient tolerated the procedure well without any apparent complications. On emergence from their anesthetic the patient was taken to PACU for ongoing recovery. Grafts/Implants Used: None Complications None Admit VTE Documentation VTE Mechan Device Prophylaxis: SCD's Procedures Digestive [id number]: [id number] Laparo cholecystectomy/graph
--- NOTE | 2023-12-04 14:56 | PCM.POST.ANE ---
Anesthesia: Postop Eval I Current Vital Signs Temperature: 97.3 F Pulse Rate: 94 Blood Pressure: 156/82 Respiratory Rate: 18 Pulse Ox: 95 Oxygen Delivery Method: Simple Mask Oxygen Flow Rate (L/min): 6 Assessment Airway patent: Yes Spontaneous unlabored respirations: Yes Mental status: Awake and Calm nausea: No Vomiting: No Anesthesia Complication: No Fluid Hydration Crystalloid volume administer (ml): 1,200 Total IV fluid infused: 1,200 Progress Note Anesthesia document: Postop Eval 1 completed: Yes
--- NOTE | 2023-12-04 15:04 | POSTOPAN2_ITS ---
Anesthesia Postop Eval I Sum Postop Eval Completion status Anesthesia document: Postop Eval 1 completed: Yes Anesthesia Postop Eval I Summary Anesthesia Postop Eval I Summary: Anesthesia Postop Eval I: Assessment Summary Airway patent Yes 12/04/23 14:57 INFORMATION TECHNOLOGY SECURITY MANAGER.[email or web address] Spontaneous unlabored Yes 12/04/23 14:57 INFORMATION TECHNOLOGY SECURITY MANAGER.STEPHANIE respirations Mental status Awake,Calm 12/04/23 14:57 INFORMATION TECHNOLOGY SECURITY MANAGER.[email or web address] nausea No 12/04/23 14:57 INFORMATION TECHNOLOGY SECURITY MANAGER.JASONOBMariel Vomiting No 12/04/23 14:57 INFORMATION TECHNOLOGY SECURITY MANAGER.STEPHANIE Anesthesia Postop Eval I: Fluid Summary Crystalloid volume administer 1,200 12/04/23 14:57 INFORMATION TECHNOLOGY SECURITY MANAGER.JASONOBY (ml) Colloids volume administered ( ml) Blood Product volume administered (ml) Total IV fluid infused 1,200 12/04/23 14:57 INFORMATION TECHNOLOGY SECURITY MANAGER.STEPHANIE Anesthesia Postop Eval I: Summary Notes Anesthesia Complication No 12/04/23 14:57 INFORMATION TECHNOLOGY SECURITY MANAGER.STEPHANIE Anesthesia Complication Comment: Post-operative progress note Anesthesia: Postop Eval II Evaluation Mental status: Awake Pain Level: 0 nausea: No Vomiting: No
--- NOTE | 2023-12-04 15:04 | PCM.POSTANE2 ---
Anesthesia Postop Eval I Sum Postop Eval Completion status Anesthesia document: Postop Eval 1 completed: Yes Anesthesia Postop Eval I Summary Anesthesia Postop Eval I Summary: Anesthesia Postop Eval I: Assessment Summary Airway patent Yes 12/04/23 14:57 SCALE RECLAMATION TENDER.SKOBY Spontaneous unlabored Yes 12/04/23 14:57 SCALE RECLAMATION TENDER.STEPHANIE respirations Mental status Awake,Calm 12/04/23 14:57 SCALE RECLAMATION TENDER.JASONOBMariel nausea No 12/04/23 14:57 SCALE RECLAMATION TENDER.JASONOBMariel Vomiting No 12/04/23 14:57 SCALE RECLAMATION TENDER.STEPHANIE Anesthesia Postop Eval I: Fluid Summary Crystalloid volume administer 1,200 12/04/23 14:57 SCALE RECLAMATION TENDER.JASONOBY (ml) Colloids volume administered ( ml) Blood Product volume administered (ml) Total IV fluid infused 1,200 12/04/23 14:57 SCALE RECLAMATION TENDER.STEPHANIE Anesthesia Postop Eval I: Summary Notes Anesthesia Complication No 12/04/23 14:57 SCALE RECLAMATION TENDER.STEPHANIE Anesthesia Complication Comment: Post-operative progress note Anesthesia: Postop Eval II Evaluation Mental status: Awake Pain Level: 0 nausea: No Vomiting: No
[2023-12-04] MEDS: Lactated Ringers 1,000 ML 50 ML IV (18:11)
[2023-12-04] MEDS: Ibuprofen 400 MG Tablet PO (18:12)
[2023-12-05] VITALS: O2SAT 94
[2023-12-05 00:12] VITALS: BP 131/81; PULSE 77; RESP 15; TEMP 36.8; O2SAT 94
[2023-12-05] MEDS: Ibuprofen 400 MG Tablet PO ×3 (00:15→11:59)
[2023-12-05 07:28] LABS: ALB/GLOB Ratio 0.8 RATIO (0.9-2.4); AST(SGOT) 87 U/L (15-37); Absolute Lymphocyte Count 1.03 X10^3/uL (0.83-4.51); Absolute Neutrophil Count 10.2 X10^3/uL (2.0-7.7); Alanine Aminotransfer ALT/SGPT 187 U/L (16-61); Albumin, Serum 3.3 g/dL (3.2-5.0); Alkaline Phosphatase 110 U/L (45-117); Anion Gap 7 (5-15); BUN 12 mg/dL (7-18); BUN/Creat Ratio 13.6 RATIO (10-20); Basophil# 0.02 X10^3/uL; Basophil% 0.2 % (0-1); Calcium,Total 9.2 mg/dL (8.5-10.1); Chloride 102 mmol/L (98-107); Creatinine, Serum 0.88 mg/dL (0.70-1.30); EST Glomerular Filtration Rate 99 mL/min (>60); Eosinophil# 0.01 X10^3/uL; Eosinophils% 0.1 % (0-5); Est Glom Filt Rate - Afr Amer 120 mL/min (>60); Estimated Creatinine Clearance 143.46 ml/min; Globulin 3.9 g/dL (2.2-4.2); Glucose 89 mg/dL (74-106); Hemoglobin 14.4 g/dL (13.0-16.5); Lymphocyte # 1.03 X10^3/ul (0.83-4.51); Lymphocyte % 8.4 % (19-41); Mean Corp Hgb Conc 32.7 g/dL (32-36); Mean Corpuscular Hgb 29.1 pg (27.0-32.0); Mean Corpuscular Volume 89.1 fL (80-94); Mean Platelet Vol. 9.6 fl (6.2-12.0); Monocyte# 0.88 X10^3/uL; Monocyte% 7.2 % (0-10); NRBC Flagged by Analyzer 0 % (0-5); Neutrophil # 10.21 X10^3/uL (2.7-7.7); Neutrophil % 83.7 % (47-70); Platelet Count 226 K/mm3 (150-450); Potassium 4.1 mmol/L (3.5-5.1); Protein, Total 7.2 g/dL (6.4-8.2); RBC Distribution Width CV 12.7 % (11.6-14.6); RBC Distribution Width SD 41.1 fl (35.1-43.9); Red Blood Count 4.94 M/mm3 (4.6-6.2); Sodium Level 136 mmol/L (136-145); White Blood Count 12.2 K/mm3 (4.4-11.0)
[2023-12-05 09:15] VITALS: BP 133/76; PULSE 84; RESP 16; TEMP 36.8; O2SAT 95
[2023-12-05] MEDS: Pantoprazole Sodium 40 MG in 0.9% Normal Saline (100mL MB+) 100 ML 330 MG IV (09:19)
--- NOTE | 2023-12-05 09:36 | DCINST_ITS ---
Discharge Instructions Diet Discharge Diet: No restrictions Activity Discharge Activity: May Not Drive (No driving while using narcotic pain medication) and May Shower (Postoperative day 1) May shower in (days): 1 Ice area for (Minutes): 20 Lifting Restrictions: No lifting greater than 15 pounds for 2 weeks after surgery Dressing / Incision Call your doctor if your incision/area has: Continuous Slow Oozing, Increased Pain/ Swelling, Increased Redness, Foul Smelling Discharge and Swelling at the incision site Call your doctor if you observe: Fever of 101 or Higher Remove Dressing in: 1 day (Please leave Steri-Strips intact until they fall off spontaneously or are taken off at your follow-up visit) Cleanse incision/area with: Soap & Water Follow Up Care Please Follow Up With: Amari Soto MD When: 7-10days postop Test Results: Test results from this visit will be discussed in further detail at your follow- up appointment, if applicable. Discharge Plan Admission Admit Date/Time: 12/03/23 22:05 Primary Reason for Your Visit: Gallbladder surgery Attending Provider: Amari Soto Primary Care Provider: Diana Hernadez,Out of Discharge Orders/Prescriptions Prescriptions: New oxycodone 5 mg Tablet 5 mg PO Q6H PRN PRN (Reason: Pain Score 6-10) 3 Days Qty: 7 0RF Referrals / Follow Up: Diana Hernadez,Out of [Primary Care Provider] - Disposition Disposition (needs filled in before D/C Order can be placed): Home, Self Care
--- NOTE | 2023-12-05 09:40 | PCM.DC.SUM ---
Providers Date of Admission: 12/03/23 Primary Care Physician: Out of Town Doctor Reason For Visit: ACUTE CHOLECYSTITIS Diagnosis Discharge Diagnosis (1) Acute calculous cholecystitis: Status: Acute Code(s): K80.00 - Calculus of gallbladder with acute cholecystitis without obstruction Plan: Patient is a 43-year-old male who presents with acute cholecystitis. Pain is markedly improved this morning, however, patient feed mill tender right upper quadrant with palpation on exam. Planning to proceed to the operating room later today for laparoscopic cholecystectomy with intraoperative cholangiogram. Patient denies any questions related to these plans. Postoperatively patient will return to the [facility] floor where we will advance his diet and monitor for diet tolerance. We will assess for appropriateness for discharge versus planning for discharge tomorrow. Amari Soto MD General Surgery Endocrine Surgery Pager: [facility] [address] [place] [address], [address] [place] [address] Office: [phone] Medications at Discharge Home Medications oxycodone 5 mg tablet 5 mg PO Q6H PRN PRN Pain Score 6-10 3 days #7 tabs 12/05/23 Hospital Course Operations cholecystecomy Summary of Care Provided Hospital Course: Patient is a 43-year-old male who was admitted via the emergency department at [facility] on 12/03/2023 after presentation with acute onset abdominal pain and associated nausea. He had previously been diagnosed with gallstones and his ER workup was consistent with a diagnosis of acute cholecystitis. With this diagnosis laparoscopic cholecystectomy was recommended and undertaken in uncomplicated fashion on 12/04/2023. Postoperatively, patient had significant postoperative nausea and vomiting as well as drowsiness so he was observed through the evening of postoperative day 0. By the morning of postoperative day 1 he was feeling much improved and had minimal pain. His labs were consistent with a postoperative status and he was advanced to a regular diet. Once Mr. Leos had the opportunity to demonstrate tolerance of this diet he was granted discharged home after clarifying expectation for outpatient/postoperative follow-up. Physical Exam Const alert and oriented x3 Resp normal respiratory effort GI GI Narrative: Operative dressings intact with mild bloody drainage over supraumbilical site, otherwise clean, dry, and intact. Minimally distended, soft, minimally tender to palpation around incisions Weight / BMI Weight Weight: 255 lb 8.252 oz Body Mass Index (BMI) 32.8 ABG / Lab / Microbiology Data 12/05/23 05:50 12/05/23 05:50 Laboratory: Laboratory Results - last 24 hr 12/05/23 05:50: WBC 12.2 H, RBC 4.94, Hgb 14.4, Hct 44.0, MCV 89.1, MCH 29.1, MCHC 32.7, RDW Std Deviation 41.1, RDW Coeff of Sisi 12.7, Plt Count 226, MPV 9.6, Immature Gran % (Auto) 0.400, Neut % (Auto) 83.7 H, Lymph % (Auto) 8.4 L, [place] % (Auto) 7.2, Eos % (Auto) 0.1, Baso % (Auto) 0.2, Absolute Neuts (auto) 10.2 H, Absolute Lymphs (auto) 1.03, Nucleated RBC % 0, Sodium 136, Potassium 4.1, Chloride 102, Carbon Dioxide 27.0, Anion Gap 7, BUN 12, Creatinine 0.88, Estim Creat Clear Calc 143.46, Est GFR (MDRD) Af Amer 120, Est GFR (MDRD) Non-Af 99, BUN/Creatinine Ratio 13.6, Glucose 89, Calcium 9.2, Total Bilirubin 0.70, AST 87 H, ALT 187 H, Alkaline Phosphatase 110, Total Protein 7.2, Albumin 3.3, Globulin 3.9, Albumin/Globulin Ratio 0.8 L Radiography Diagnostic Testing: Radiology Impression Cholangiogram 12/04/23 13:05 IMPRESSION: Fluoroscopic-guided laparoscopic intraoperative point Electronically Signed: Dawood Em MD at 17:00 EDT , D/C Instructions Discharge Diet: No restrictions May shower in (days): 1 Ice area for (Minutes): 20 Call your doctor if your incision/area has: Continuous Slow Oozing, Increased Pain/ Swelling, Increased Redness, Foul Smelling Discharge and Swelling at the incision site Call your doctor if you observe: Fever of 101 or Higher Cleanse incision/area with: Soap & Water Please Follow Up With: Amari Soto MD When: 7-10days postop Meaningful Use Info Meaningful Use Meaningful Use Diagnoses (Choose all that apply): None applicable Ischemic Stroke Statin Dosing Therapy Reference: STATIN DOSE THERAPY REFERENCE: * Patients > 75 years receive moderate or high dose statin therapy. * Patients 75 years or YOUNGER should receive HIGH intensity statin dose unless contraindicated. You will be required to document reason for non-treatment if statin daily dose does not meet guidelines. HIGH DOSE STATIN THERAPY DAILY Atorvastatin > than or = to 40 mg Rosuvastatin > than or = to 20 mg Amlodipine + Atorvastatin > than or = to 2.5/40 mg Ezetimibe + Simvastatin 10/80 mg Simvastatin 80mg Discharge Plan Admission Admit Date/Time: 12/03/23 22:05 Primary Reason for Your Visit: Gallbladder surgery Attending Provider: Amari Soto Primary Care Provider: Diana Hernadez,Out of Discharge Orders/Prescriptions Prescriptions: New oxycodone 5 mg Tablet 5 mg PO Q6H PRN PRN (Reason: Pain Score 6-10) 3 Days Qty: 7 0RF Referrals / Follow Up: Diana Hernadez,Out of [Primary Care Provider] - Disposition Disposition (needs filled in before D/C Order can be placed): Home, Self Care Charges/Coding Visit Charges Inpatient E&M: 11736 Disch Hosp
--- NOTE | 2023-12-05 11:31 | PHA.DC_ITS ---
Pharmacy [facility] has performed discharge medication reconciliation and counseling for this patient. 1. OXYCODONE 5MG PO Q6H PRN PAIN 6-10 The patient's discharge medication list was reviewed for discrepancies and discrepancies were resolved. The patient was counseled on the following discharge medications and changes in medications for homegoing were reviewed. The Reason for Use, instructions for use, and potential side effects were reviewed for all new medications. The patient's questions regarding all of their medications were answered. The patient was able to verbally demonstrate an understanding of their discharge medications. Medications at Discharge Home Medications oxycodone 5 mg tablet 5 mg PO Q6H PRN PRN Pain Score 6-10 3 days #7 tabs 12/05/23
[2023-12-05 14:10] VITALS: BP 128/89; PULSE 84; RESP 18; TEMP 36.5; O2SAT 95
[2023-12-05] MEDS: Acetaminophen 500 MG Tablet PO (14:19)
== END 2023-12-05 15:28 | disposition home or self-care (01) | DRG 419 ==
LOC: ED 16:27 → MS3 22:25
PROVIDERS: Admitting Provider Surgery; Emergency Provider Emergency Medicine; Visit Provider Surgery
PROC: 0FT44ZZ Resection of Gallbladder, Percutaneous Endoscopic Approach (ICD-10-PCS; CPT 47610; principal; 2023-12-04 12:40)
DX: K80.00 Calculus of gallbladder with acute cholecystitis without obstruction (principal)
CPT/HCPCS: 36415; 74177; 74300; 76000; 76705; 80048; 80053; 80076; 81001; 83690; 85025; 88304; 93005; 99284; J7030; J7050; J7120; Q9967; A4216; J2405; J3490